=== PATIENT | female | born 1955 | race Caucasian/White ===

== ENCOUNTER 2021-06-17 14:11 | Emergency (ER) | payer MEDICARE, OTHER, SELFPAY ==
[2021-06-17] VITALS (12 sets, daily range): BP systolic 157–225; BP diastolic 77–107; PULSE 59–81; RESP 16–21; TEMP 36.5; O2SAT 93–99; BMI 28.1
--- NOTE | 2021-06-17 14:43 | DI.RAD.S_ITS ---
PROCEDURE: XR CHEST 1V INDICATIONS: chest pain TECHNIQUE: One view of the chest was acquired. COMPARISON: None. FINDINGS: Surgical changes and devices: None. Lungs and pleura: Lungs are clear. No pleural effusions or pneumothorax. Mediastinum: Mediastinal contours appear normal. Heart size is normal. Atherosclerotic calcification of the aortic arch is noted. Bones and chest wall: No suspicious bony lesions. Overlying soft tissues appear unremarkable. IMPRESSION: Portable chest within normal limits for age. Dictated by: Ryan Smith M.D. on 06/17/2021 at 14:34 Approved by: Ryan Smith M.D. on 06/17/2021 at 14:34
--- NOTE | 2021-06-17 15:17 | ED_ITS ---
HPI - General Adult General Chief complaint: Syncope Stated complaint: fainted hit head, low blood pressure Time Seen by Provider: 06/17/21 14:55 Source: patient Mode of arrival: Ambulatory Limitations: no limitations History of Present Illness HPI narrative: 65-year-old female. Has been seeing her primary provider regularly for elevations in blood pressure. She does had a recent increase in her amlodipine from 5 mg to 10 mg. Over the she went on a trip. She did miss a couple doses of her blood pressure medications. During this time she took her blood pressure at home and it seemed to be low. She was not feeling well during this time. No fevers. No chest pain. No shortness of breath. She does generally felt very poorly. On of this week she was feeling very poorly. She stood up and became lightheaded. She did lose consciousness. Patient shortly regain conscious. There was no seizure-like activity. There was no injury from the event. She has not taken any of her blood pressure medicines over the past couple days because she states that she has been taking her blood pressure at home and it has been low. Related Data Allergies Allergy/AdvReac Type Severity Reaction Status Date / Time fenofibrate [From Tricor] Allergy Verified 06/17/21 14:26 Penicillins Allergy Nausea Verified 06/17/21 14:26 Review of Systems Constitutional Constitutional: Reports fatigue, Denies headache(s), Reports lethargy and Rep orts malaise ENT Ears, Nose, Mouth, and Throat: Denies headache(s) Cardiovascular Cardiovascular: Reports as per HPI and Reports system reviewed and no additional complaints, except as documented Respiratory Respiratory: Reports as per HPI and Reports system reviewed and no additional complaints, except as documented Gastrointestinal Gastrointestinal: Reports system reviewed and no additional complaints, except as documented Genitourinary Genitourinary: Reports system reviewed and no additional complaints, except as documented and Denies dysuria Musculoskeletal Musculoskeletal: Reports system reviewed and no additional complaints, except as documented Neurologic Neurologic: Reports system reviewed and no additional complaints, except as documented, Reports as per HPI and Denies headache(s) Endocrine Endocrine: Reports fatigue Hematologic/Lymphatic On Anticoagulants: No Patient History Medical History Hypertension Social History Smoking Status: Never smoker Smoking Status: Never smoker alcohol intake frequency: 0-2 drinks per day Substance Use Type: marijuana Exam Initial Vital Signs Initial Vital Signs: Vital Signs Temperature 97.7 F 06/17/21 14:20 Pulse Rate 81 06/17/21 14:20 Respiratory Rate 18 06/17/21 14:20 Blood Pressure 225/107 H 06/17/21 14:20 Pulse Oximetry 99 06/17/21 14:20 Const General: cooperative, comfortable, well developed and well groomed HENMT Head: normal to inspection and normocephalic Chest Chest: normal inspection of the chest Resp Effort & Inspection: normal respiratory effort Cardio Rate: regular rate GI Inspection: normal to inspection Skin General: no rashes or lesions noted Neuro General: patient alert and patient awake Cognition: normal cognition Speech: speech normal Gait: normal gait Extrem General: normal to inspection Psych Appearance: grossly normal and well kempt Course Orders Ordered: ED Orders 06/17/21 14:43 XR chest 1V Stat 06/17/21 14:45 EKG-12 Lead Stat 06/17/21 14:55 COVID19 -Nasal swab/Pre-Proc Stat 06/17/21 15:20 Complete Blood Count AUTO DIFF Stat Comprehensive Metabolic Panel Stat Lipase Stat Troponin & CK Cardiac Panel Stat 06/17/21 15:50 Creatinine Urine Random Stat Sodium Urine Random Stat Urinalysis and Microscopic Stat Urine Culture Stat Vital Signs Vital signs: Vital Signs - 8 hr 06/17/21 14:20 06/17/21 14:52 06/17/21 15:09 Temperature 97.7 F Pulse Rate 81 75 63 Respiratory Rate 18 18 Blood Pressure 225/107 H 185/90 H Pulse Oximetry 99 97 06/17/21 15:18 06/17/21 15:30 06/17/21 16:01 Temperature Pulse Rate 61 Respiratory Rate 16 Blood Pressure 157/78 H 161/83 H Pulse Oximetry 96 97 06/17/21 16:03 06/17/21 16:30 06/17/21 17:00 Temperature Pulse Rate 64 65 62 Respiratory Rate 21 20 21 Blood Pressure 157/83 H 168/80 H 169/82 H Pulse Oximetry 96 94 95 06/17/21 17:30 Temperature Pulse Rate 61 Respiratory Rate 19 Blood Pressure 165/77 H Pulse Oximetry 94 Medical Decision Making Lab Data Lab results reviewed: Yes I reviewed the patient's lab results. Result diagrams: 06/17/21 15:20 06/17/21 15:20 Labs: Lab Results 06/17/21 06/17/21 06/17/21 Range/Units 14:55 15:20 15:20 WBC 7.6 (4.5-11.0) X10^3/uL RBC 3.66 L (4.0-5.2) X10^6/uL Hgb 11.7 L (12.0-16.0) g/dL Hct 33.9 L (36-46) % MCV 92.6 (80-100) fL MCH 31.8 (26-34) PG MCHC 34.3 (30-36) % RDW 12.9 (11.6-14.8) % Plt Count 303 (150-400) X10^3/uL Neut % (Auto) 70.3 (50-75) % Lymph % (Auto) 14.8 L (25-40) % Pickett % (Auto) 5.5 (3-14) % Eos % (Auto) 8.6 H (2-4) % Baso % (Auto) 0.8 (0-2) % Neut # (Auto) 5400 (0144-5326) /uL Lymph # (Auto) 1100 (1403-2756) /uL Pickett # (Auto) 400 (0-900) /uL Eos # (Auto) 700 H (0-450) /uL Baso # (Auto) 100 (0-100) /uL Sodium 134 L (137-145) mmol/L Potassium 3.3 L (3.4-5.1) mmol/L Chloride 100 (98-107) mmol/L Carbon Dioxide 22 (22-32) mmol/L BUN 58 H (7-17) mg/dL Creatinine 3.61 H (0.52-1.04) mg/dL Estimated GFR 12.6 L (>60) mL/min BUN/Creatinine Ratio 16.1 (6-22) Glucose 138 H (80-110) mg/dL Calcium 9.7 (8.4-10.2) mg/dL Total Bilirubin 0.4 (0.2-1.3) mg/dL AST 28 (14-36) IU/L ALT 31 (<35) IU/L Alkaline Phosphatase 74 (38-126) U/L Total Creatine Kinase 45 (30-135) U/L CK-MB (CK-2) TNP CK-MB (CK-2) Rel Index TNP Troponin I < 0.012 (0.01-0.034) ng/mL Total Protein 7.5 (6.3-8.2) g/dL Albumin 4.2 (3.5-5.0) g/dL Globulin 3.3 (1.7-4.1) g/dL Albumin/Globulin Ratio 1.3 (1.0-2.8) Lipase 433 H (23-300) U/L Urine Color Urine Appearance Urine pH (4.5-8.0) Ur Specific [place] (1.000-1.035) Urine Protein (Negative) Urine Glucose (UA) (Negative) g/dL Urine Ketones (NEGATIVE) Urine Occult Blood (Negative) Urine Nitrate (Negative) Urine Bilirubin (NEGATIVE) Urine Urobilinogen (0.2) E.U./dL Ur Leukocyte Esterase (NEGATIVE) Urine RBC (0-5/HPF) Urine WBC (0-5/HPF) Ur Squamous Epith Cells (0-5/HPF) Urine Bacteria (None) Ur Culture Indicated? Ur Random Sodium (30-90) mmol/L Urine Creatinine mg/dL SARS-CoV-2 (PCR) Negative (Negative) 06/17/21 06/17/21 Range/Units 15:50 15:50 WBC (4.5-11.0) X10^3/uL RBC (4.0-5.2) X10^6/uL Hgb (12.0-16.0) g/dL Hct (36-46) % MCV (80-100) fL MCH (26-34) PG MCHC (30-36) % RDW (11.6-14.8) % Plt Count (150-400) X10^3/uL Neut % (Auto) (50-75) % Lymph % (Auto) (25-40) % Pickett % (Auto) (3-14) % Eos % (Auto) (2-4) % Baso % (Auto) (0-2) % Neut # (Auto) (8232-6314) /uL Lymph # (Auto) (0266-7021) /uL Pickett # (Auto) (0-900) /uL Eos # (Auto) (0-450) /uL Baso # (Auto) (0-100) /uL Sodium (137-145) mmol/L Potassium (3.4-5.1) mmol/L Chloride (98-107) mmol/L Carbon Dioxide (22-32) mmol/L BUN (7-17) mg/dL Creatinine (0.52-1.04) mg/dL Estimated GFR (>60) mL/min BUN/Creatinine Ratio (6-22) Glucose (80-110) mg/dL Calcium (8.4-10.2) mg/dL Total Bilirubin (0.2-1.3) mg/dL AST (14-36) IU/L ALT (<35) IU/L Alkaline Phosphatase (38-126) U/L Total Creatine Kinase (30-135) U/L CK-MB (CK-2) CK-MB (CK-2) Rel Index Troponin I (0.01-0.034) ng/mL Total Protein (6.3-8.2) g/dL Albumin (3.5-5.0) g/dL Globulin (1.7-4.1) g/dL Albumin/Globulin Ratio (1.0-2.8) Lipase (23-300) U/L Urine Color Yellow Urine Appearance Clear Urine pH 5.0 (4.5-8.0) Ur Specific [place] <=1.005 (1.000-1.035) Urine Protein Negative (Negative) Urine Glucose (UA) Negative (Negative) g/dL Urine Ketones Negative (NEGATIVE) Urine Occult Blood Trace-lysed (Negative) Urine Nitrate Negative (Negative) Urine Bilirubin Negative (NEGATIVE) Urine Urobilinogen 0.2 (0.2) E.U./dL Ur Leukocyte Esterase Negative (NEGATIVE) Urine RBC 0-1/hpf (0-5/HPF) Urine WBC 1-5/hpf (0-5/HPF) Ur Squamous Epith Cells 1-5 /hpf (0-5/HPF) Urine Bacteria Occasional (0-1) (None) Ur Culture Indicated? Specimen cultured Ur Random Sodium 49 (30-90) mmol/L Urine Creatinine 42.7 mg/dL SARS-CoV-2 (PCR) (Negative) Imaging Data Chest x-ray: Radiologist's Impression: [address] [address] XRay Report Signed Patient: Breanna Brunson MR#: [id number] : 1955 Acct:[id number] Age/Sex: 65 / F Date of Service: 06/17/21 Loc: ED Accession Number: [id number] ?? Procedure: XR chest 1V Ordering Provider: Aurelio Sena D.O. PROCEDURE:? XR CHEST 1V ? INDICATIONS:? chest pain ? TECHNIQUE:? One view of the chest was acquired.? ? COMPARISON:? None. ? FINDINGS:? ? Surgical changes and devices:? None.? ? Lungs and pleura:? Lungs are clear.? No pleural effusions or pneumothorax.? ? Mediastinum:? Mediastinal contours appear normal.? Heart size is normal.? Atherosclerotic calcification of the aortic arch is noted.? ? Bones and chest wall:? No suspicious bony lesions.? Overlying soft tissues appear unremarkable.? IMPRESSION:? ? Portable chest within normal limits for age. ? ? ? Dictated by: Ryan Smith M.D. on 06/17/2021 at 14:34 ? ? Approved by: Ryan Smith M.D. on 06/17/2021 at 14:34? ECG Data Attestation: I personally reviewed and interpreted this ECG as follows: Interpretation: Sinus rhythm Ventricular rate of 60 Normal axis Normal QRS Normal QTC Nonspecific ST T wave changes MDM Narrative Medical decision making narrative: She has an unremarkable exam here in the emergency department. She is afebrile. EKG unremarkable. Labs do show a acute kidney injury. We do not have any old labs to compare to from but she was able to look up labs and earlier this year she had normal kidney function and normal GFR. Her potassium is unremarkable. Patient's Fena consistent with intrinsic etiology. This could potentially be some the issues with her blood pressure. Low suspicion for CVA. Low suspicion for TIA. Low suspicion for seizure. Plan will be is to discharge home and have her contact her primary doctor for a follow-up. She was given a copy of her labs. I do not feel the patient needs admitted to the hospital for emergent workup. We will hold on radiologic studies for now and have her primary doctor decide whether not CT scan verses ultrasound is more appropriate. Patient was given return precautions. She expressed understanding and agreement. Discharge Plan Departure Patient Disposition: Home Clinical Impression: Syncope, Hypertension, Acute kidney injury Instructions: DI for Syncope in Adults (Fainting) Activity Restrictions/Additional Instructions: It is important that you follow-up with your primary doctor regarding your kidney issues that were found today. Should increase your fluid intake. I recommend that in the morning before you take any of your blood pressure medicines that you check your blood pressure. Record all of the values of your blood pressure that you take. If your morning blood pressure is greater than 140/90 I do recommend that you take the amlodipine. Recheck the blood pressure again at approximately noon. If it remains greater than 140/90 take the atenolol. Return to the emergency department for any new or worsening symptoms Referrals: Fahad Pugh MD [Primary Care Provider] -
[2021-06-17 15:19] LABS: COVID19 -Nasal RAPID Negative (Negative)
[2021-06-17 15:27] LABS: Add Manual Diff / Slide Review NO; Basophils Absolute Auto 100 /uL (0-100); Basophils Percent Auto 0.8 % (0-2); Eosinophils Absolute Auto 700 /uL (0-450); Eosinophils Percent Auto 8.6 % (2-4); Hematocrit 33.9 % (36-46); Hemoglobin 11.7 g/dL (12.0-16.0); Lymphocytes Absolute Auto 1100 /uL (1100-4500); Lymphocytes Percent Auto 14.8 % (25-40); Mean Corpuscular HGB Conc 34.3 % (30-36); Mean Corpuscular Hemoglobin 31.8 PG (26-34); Mean Corpuscular Volume 92.6 fL (80-100); Monocytes Absolute Auto 400 /uL (0-900); Monocytes Percent Auto 5.5 % (3-14); Neutrophils Absolute Auto 5400 /uL (1500-7000); Neutrophils Percent Auto 70.3 % (50-75); Platelet Count 303 X10^3/uL (150-400); Red Blood Cell Count 3.66 X10^6/uL (4.0-5.2); Red Cell Distribution Width 12.9 % (11.6-14.8); White Blood Cell Count 7.6 X10^3/uL (4.5-11.0)
[2021-06-17 15:37] LABS: Alanine Aminotransferase 31 IU/L (<35); Albumin 4.2 g/dL (3.5-5.0); Albumin Globulin Ratio 1.3 (1.0-2.8); Alkaline Phosphatase 74 U/L (38-126); Aspartate Aminotransferase 28 IU/L (14-36); BUN Creatinine Ratio 16.1 (6-22); Bilirubin Total 0.4 mg/dL (0.2-1.3); Blood Urea Nitrogen 58 mg/dL (7-17); Calcium 9.7 mg/dL (8.4-10.2); Carbon Dioxide 22 mmol/L (22-32); Chloride 100 mmol/L (98-107); Creatine Kinase 45 U/L (30-135); Estimated Glomerular Filt Rate 12.6 mL/min (>60); Globulin 3.3 g/dL (1.7-4.1); Glucose 138 mg/dL (80-110); HEMOLYSIS < 15 (0-50); Lipase 433 U/L (23-300); Potassium 3.3 mmol/L (3.4-5.1); Sodium 134 mmol/L (137-145); Total Protein 7.5 g/dL (6.3-8.2)
[2021-06-17 15:48] LABS: Troponin I < 0.012 ng/mL (0.01-0.034)
[2021-06-17 16:33] LABS: Creatinine Urine Random 42.7 mg/dL; Sodium Urine Random 49 mmol/L (30-90)
[2021-06-17 16:34] LABS: Appearance Urine UA CLEAR; Bilirubin Urine UA NEGATIVE (NEGATIVE); Color Urine UA YELLOW; Glucose Urine UA NEGATIVE (Negative); Ketones Urine UA NEGATIVE (NEGATIVE); Leukocyte Esterase Urine UA NEGATIVE (NEGATIVE); Nitrite Urine UA NEGATIVE (Negative); Occult Blood Urine UA TRACE-LYSED (Negative); Protein Urine UA NEGATIVE (Negative); Specific Gravity Urine UA <=1.005 (1.000-1.035); Urobilinogen Urine UA 0.2 E.U./dL (0.2)
[2021-06-17 16:42] LABS: Bacteria Urine Occasional (0-1); Culture Indicated Urine Specimen Cultured; RBC Urine 0-1/HPF (0-5/HPF); Squamous Epithelial Cell Urine 1-5 /HPF (0-5/HPF); WBC Urine 1-5/HPF (0-5/HPF)
== END 2021-06-17 18:13 | disposition home or self-care (01) ==
PROVIDERS: Emergency Provider Emergency Medicine; PCP Family Medicine
DX: R55 Syncope and collapse (principal); I10 Essential (primary) hypertension; N17.9 Acute kidney failure, unspecified; Z20.822 Contact with and (suspected) exposure to COVID-19
CPT/HCPCS: 36415; 71045; 80053; 81001; 82550; 82570; 83690; 84300; 84484; 85025; 87086; 87635; 93005; 99283; 99284; C9803